=== PATIENT | female | born 1970 | race Caucasian/White ===

== ENCOUNTER → 2016-05-22 | Outpatient (CLI) | payer OTHER ==
--- NOTE | 2016-05-22 15:08 | MA ---
Screening Digital Mammogram With Tomosynthesis Clinical Indications: Routine screening. Sister with breast cancer at age 41. Technique: Standard digital cephalocaudal and tomosynthesis mediolateral oblique projections were ob tained. The digital images were processed by the [employer] computer aided detection system. Comparison: March 2014, March 2013 and December 2011. Breast density: D; The breast tissue is extremely dense. This may lower the sensitivity of mammograph y. Findings: CAD was reviewed. Developing density with subtle convex edge margins upper, slightly outer left breast. The remainder of the left and right breast are stable. Impression: Developing density 12-2 o'clock left breast, approximately 4-5 cm from the nipple. Recommendation: Further imaging with ultrasound.. [facility] will send a result letter to the patient. Negative mammography should not preclude additional workup of a clinically suspicious finding. Consid ering the patient's family history she might benefit from genetic counseling. The patient's information is entered into a reminder system with a target due date for her next mammo gram.
== END ==
LOC: FIMAGING 13:46
DX: Z12.31 Encounter for screening mammogram for malignant neoplasm of breast (principal); Z80.3 Family history of malignant neoplasm of breast
CPT/HCPCS: G0202

== ENCOUNTER → 2016-05-29 | Outpatient (CLI) | payer OTHER ==
--- NOTE | 2016-05-29 13:44 | US ---
Left breast ultrasound. History: Possible developing density left breast on mammography. Comparison: May 2016 and March 2014. Findings: Ultrasound was performed of the left breast with attention to the 12-3 o'clock position. Be nign fibrocystic changes seen in the left breast with numerous small cysts. The largest is in the 3 o 'clock position measuring 1 cm. No solid mass is visualized. Impression: Benign. BI-RADS 2. Recommend patient return in one year to resume bilateral screening mammography. Results given to the patient at the time the exam.
== END ==
LOC: FIMAGING 12:55
PROVIDERS: ATTEND Obstetrics & Gynecology Gynecology
DX: N60.12 Diffuse cystic mastopathy of left breast (principal)

== ENCOUNTER → 2017-06-19 | Outpatient (CLI) | payer OTHER | LOC: FIMAGING 15:43 | PROVIDERS: ATTEND Obstetrics & Gynecology Gynecology | DX: Z12.31 Encounter for screening mammogram for malignant neoplasm of breast (principal); Z80.3 Family history of malignant neoplasm of breast ==

== ENCOUNTER → 2018-07-09 | Outpatient (CLI) | payer OTHER | LOC: FIMAGING 15:50 | PROVIDERS: ATTEND Obstetrics & Gynecology Gynecology | DX: Z12.31 Encounter for screening mammogram for malignant neoplasm of breast (principal) ==

== ENCOUNTER → 2018-08-26 | Outpatient (CLI) | payer OTHER | LOC: FIMAGING 09:04 | PROVIDERS: ATTEND Obstetrics & Gynecology Gynecology | DX: N63.20 Unspecified lump in the left breast, unspecified quadrant (principal) ==